=== PATIENT | male | born 1985 | race Caucasian/White ===

== ENCOUNTER 2022-12-09 19:21 | Emergency (ER) | payer MEDICAID, SELFPAY ==
[2022-12-09 19:27] VITALS: BP 114/77; PULSE 79; RESP 20; TEMP 37.3; O2SAT 97; BMI 25.8
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
[2022-12-09 19:32] VITALS: BP 150/90; PULSE 60; O2SAT 98
== END 2022-12-09 23:04 | disposition left against medical advice (07) ==
PROVIDERS: Emergency Provider Internal Medicine
DX: M54.50 Low back pain, unspecified (principal)
CPT/HCPCS: 99282

== ENCOUNTER 2023-11-20 03:28 | Inpatient (IN) | payer OTHER, SELFPAY ==
--- NOTE | ~2023-11-20 | CT_ITS ---
EXAMINATION: CT of the left forearm with intravenous contrast INDICATION: Reason for Exam Abscess IVDA COMPARISON: None TECHNIQUE: Multidetector volumetric imaging was obtained through the left forearm following intravenous administration of 85 mL Omnipaque 350. Multiplanar reformatted images in coronal and sagittal orientations were submitted. This CT examination was performed using dose optimization techniques as appropriate, variously including the following: *Automated exposure control *Adjustment of mA and/or kV according to patient size (this includes techniques or standardized protocols for targeted exams where dose is matched to indication/reason for exam; i.e. extremities or head) *Use of iterative reconstruction technique DLP: 168 mGy-cm FINDINGS: There is significant subcutaneous fat stranding and soft tissue swelling in the volar soft tissues at the left wrist and forearm with propagation proximally along the superficial fascial plane overlying the anterior musculature. At the level of the proximal carpal row, there is a thin, peripherally enhancing, superficial collection of complex fluid measuring approximately 2 x 1.5 x 0.4 cm, consistent with a thin subcutaneous abscess. This is contiguous with a very small superficial wound in this region. The surrounding skin is thickened and hyperenhancing, consistent with cellulitis. No significant subcutaneous gas. No separate fluid collections are identified. Underlying tendons and muscles are normal in appearance without appreciable tenosynovitis. No significant findings of fasciitis in the deep intermuscular fascial planes. No acute osseous abnormalities. Old healed distal radial fracture is noted with a small chronic nonunited component along the dorsal margin of the distal radial articular surface. Wrist and elbow joints are otherwise unremarkable. CT/CT forearm LT w IV con IMPRESSION: Superficial subcutaneous abscess in the volar soft tissues at the level of the proximal carpal row measuring approximately 2 x 1.5 x 0.4 cm with surrounding cellulitis.
[2023-11-20 03:44] VITALS: BP 137/89; PULSE 101; RESP 18; TEMP 37.9; O2SAT 97; BMI 31.2
[2023-11-20 04:11] VITALS: BP 140/72; PULSE 93; RESP 16; TEMP 37.9
[2023-11-20 04:21] LABS: Basophils Absolute Auto 0.1 X10*3/uL (0.0-0.2); Basophils Percent Auto 0.5 % (0-2); Eosinophils Absolute Auto 0.1 X10*3/uL (0.0-0.4); Eosinophils Percent Auto 1.1 % (0-4); Hematocrit 38.9 % (42.0-52.0); Hemoglobin 13.1 g/dl (14.0-18.0); Imm Gran Abs Auto 0.03 X10*3/uL (0.00-0.03); Imm Gran Pct Auto 0.3 % (0.0-0.4); Lymphocytes Absolute Auto 2.7 X10*3/uL (1.2-4.9); MANUAL DIFF FLAG SCAN; Mean Corpuscular HGB Conc 33.7 g/dl (31.0-36.0); Mean Corpuscular Hemoglobin 29.9 pg (27.0-33.0); Mean Corpuscular Volume 88.8 fL (80.0-98.0); Mean Platelet Volume 9.8 fL (9.4-12.4); Monocytes Absolute Auto 1.6 X10*3/uL (0.1-1.2); Monocytes Percent Auto 14.4 % (2-11); Neutrophils Absolute Auto 6.6 x10*3/uL (2.0-8.3); Neutrophils Percent Auto 59.7 % (45-73); Platelet Count 208 X10*3/uL (160-400); Red Blood Count 4.38 X10*6/uL (4.60-5.80); Red Cell Distribution Width 12.8 % (11.0-16.0); SCAN SMEAR FLAG 1; White Blood Count 11.1 X10*3/uL (4.8-10.8)
[2023-11-20 04:37] LABS: Alanine Aminotransferase 87 U/L (0-40); Albumin Level 3.8 g/dL (3.5-5.0); Alkaline Phosphatase 75 U/L (39-117); Anion Gap 13 (12-20); Aspartate Amino Transferase 91 U/L (5-37); Bilirubin Total 0.4 mg/dL (0.0-1.0); Blood Urea Nitrogen 8 mg/dL (9-16); Calcium 9.2 mg/dL (8.4-10.2); Carbon Dioxide 23 mmol/L (22-29); Chloride 105 mmol/L (96-108); Creatinine Clr Calc Pharmacy 127.9; Estimated Glomerular Filt Rate > 60; Glucose Random 182 mg/dL (60-115); Potassium 3.3 mmol/L (3.3-5.1); Sodium 138 mmol/L (135-145); Total Protein 6.9 g/dL (6.5-8.0)
[2023-11-20 04:38] LABS: SLIDE REVIEW VERIFIED
[2023-11-20 04:40] LABS: Lactic Acid 2.7 mmol/L (0.5-2.0)
--- NOTE | 2023-11-20 04:44 | ED_ITS ---
HPI - General Adult General Chief complaint: General Medical Stated complaint: arm infection? Time Seen by Provider: 11/20/23 04:40 Source: patient Mode of arrival: ambulatory Limitations: no limitations History of Present Illness HPI narrative: Patient IVDA user used IV cocaine 2 days ago in both wrists noticed increased swelling and redness within 24 hours of injecting more on the left wrist volar aspect spreading to the forearm no fever no chills pain increases on active or passive movements of wrist neurovascular intact no fever or chills no hypersensitivity to touch Related Data Home Medications Medication Instructions Recorded Confirmed buprenorphine 8 mg-naloxone 2 mg tab sublingual 11/20/23 sublingual tablet buprenorphine 8 mg-naloxone 2 mg tab sublingual DAILY 11/20/23 sublingual tablet Allergies Allergy/AdvReac Type Severity Reaction Status Date / Time Penicillins Allergy Unknown Verified 11/20/23 03:44 tramadol AdvReac Depression Verified 11/20/23 03:44 Review of Systems 2 Review of Systems: Yes all other systems are reviewed and are negative PMFSH Past Medical History Onset Date is defined in the Problem List Problems that require an onset date and time if occurred within 24 hrs of arrival to the ED Aortic Dissection and Rupture; Neurologic impairment; Cardiopulmonary Arrest; Endotracheal Intubation; Insertion or Replacement of Mechanical Circulatory Assist Device Medical History (Updated 11/20/23 @ 06:25 by Eric Ray MD) Substance abuse Social History Social History Smoked in Last 30 Days: Yes Use of substances other than those prescribed or required for medical reasons: Yes Substance Use Type: Crack/Cocaine and Marijuana Substance Use Frequency Other:: recent relapse 2 days ago. Last Used Substance: Days (ago) Any prior treatment program specific to substance use: No Advance Directives: No Advance Directives Information Provided: No Physical Exam ED Vital Signs: Vital Signs - 24 hr 11/20/23 03:44 11/20/23 04:11 11/20/23 05:42 Temperature 100.2 F 100.3 F Pulse Rate 101 H 93 89 Respiratory Rate 18 16 16 Blood Pressure 137/89 140/72 H 134/75 Pulse Oximetry 97 97 Oxygen Delivery Method Room Air Room Air BMI result Body Mass Index 31.2 Appearance: Alert. Oriented X3. No acute distress. ENT: Pharynx normal. Oral Mucosa moist Neck: Normal inspection. Neck supple. CVS: Normal heart rate and rhythm. Pulses normal. Respiratory: No respiratory distress. Equal air entry bilateral, Abdomen: Soft and nontender. Bowel sounds are present, no mass palpable, no CVA tenderness Skin: Skin warm and dry. Normal skin color. Normal skin turgor. Extremities: Left wrist with cellulitis of the volar aspect of the wrist spreading to the mid forearm, right wrist small 3 x 3 cm cellulitis at the wrist area distal pulses palpable capillary filling less than 3 sec Neuro: Oriented X 3. No motor deficit. No sensory deficit.No cerebellar signs , cranial nerves II-XII intact Medications Administered Generic Name Dose Route Start Last Admin Trade Name Freq PRN Reason Stop Dose Admin Vancomycin HCl 2,000 mg in 520 mls @ 250 mls/hr 11/20/23 05:00 11/20/23 05:02 Vancomycin/Ns IV 11/20/23 07:04 250 mls/hr ONCE ONE Administration Discontinued Medications Generic Name Dose Route Start Last Admin Trade Name Freq PRN Reason Stop Dose Admin Sodium Chloride 1,000 mls @ 999 mls/hr 11/20/23 04:48 11/20/23 06:33 Ns IV 11/20/23 05:48 Infused .Q1H1M ONE Infusion Iohexol 85 ml 11/20/23 05:30 11/20/23 05:31 Iohexol 350 Mg/Ml 100 Ml Infus..Btl IV 11/20/23 05:31 85 ml ONCE ONE Administration Ketorolac Tromethamine 30 mg 11/20/23 05:02 11/20/23 05:30 Ketorolac Tromethamine 30 Mg/Ml Vial IVPUSH 11/20/23 05:03 30 mg ONCE ONE Administration Lidocaine HCl 5 ml 11/20/23 04:47 11/20/23 05:14 Lidocaine Hcl 1 % Mpf 5 Ml Vial INFILTRATI 11/20/23 04:48 5 ml ONCE ONE Administration Procedures Abscess I/D Site: upper extremity (Left wrist) Side (if applicable): left Local Anesthetic: lidocaine 1% Amount of anesthesia used (mL): 1 Technique: incised with blade Amount of fluid expressed (mL): 1 Sent for culture/gram staining?: Yes Irrigation: No Packing used?: none Medical Decision Making Medical Decision Making MDM Narrative: Patient with cellulitis with abscess the left wrist after using IVDA I and D was done clinically patient does not have compartment syndrome or necrotizing fasciitis at this time started on IV vancomycin patient meeting criteria for SIRS will admit for IV antibiotic. CT scan of the forearm ordered to rule out deeper space infection which showed abscess and cellulitis of the left wrist Differential Diagnosis Differential Diagnoses: The differential diagnosis associated with the presentation includes Abscess/cellulitis/necrotizing fasciitis/compartment syndrome Admission/Observation Consideration of admission/observation: Escalation of care including admission/observation considered Consult Healthcare Provider Management of the patient was discussed with: Hospitalist Lab Data [facility] Lab Attestation statement: I reviewed the patient's lab results. 11/20/23 04:14 11/20/23 04:14 Labs: Lab Results 11/20/23 Range/Units 04:14 WBC 11.1 H (4.8-10.8) X10*3/uL RBC 4.38 L (4.60-5.80) X10*6/uL Hgb 13.1 L (14.0-18.0) g/dl Hct 38.9 L (42.0-52.0) % MCV 88.8 (80.0-98.0) fL MCH 29.9 (27.0-33.0) pg MCHC 33.7 (31.0-36.0) g/dl RDW 12.8 (11.0-16.0) % Plt Count 208 (160-400) X10*3/uL MPV 9.8 (9.4-12.4) fL Immature Gran % (Auto) 0.3 (0.0-0.4) % Neut % (Auto) 59.7 (45-73) % Lymph % (Auto) 24.0 (20-40) % [place] % (Auto) 14.4 H (2-11) % Eos % (Auto) 1.1 (0-4) % Baso % (Auto) 0.5 (0-2) % Lymph # (Auto) 2.7 (1.2-4.9) X10*3/uL [place] # (Auto) 1.6 H (0.1-1.2) X10*3/uL Eos # (Auto) 0.1 (0.0-0.4) X10*3/uL Baso # (Auto) 0.1 (0.0-0.2) X10*3/uL Abs Immat Gran (auto) 0.03 (0.00-0.03) X10*3/uL Absolute Neuts (auto) 6.6 (2.0-8.3) x10*3/uL Absolute Nucleated RBC 0.000 (0.0-0.012) X10*3/uL Nucleated RBC % (auto) 0.0 (0.0-0.2) /100WBC Smear Tech's Comments VERIFIED Sodium 138 (135-145) mmol/L Potassium 3.3 (3.3-5.1) mmol/L Chloride 105 (96-108) mmol/L Carbon Dioxide 23 (22-29) mmol/L Anion Gap 13 (12-20) BUN 8 L (9-16) mg/dL Creatinine 0.82 (0.5-1.4) mg/dL Estim Creat Clear Calc 127.9 Estimated GFR > 60 Random Glucose 182 H (60-115) mg/dL Lactic Acid 2.7 H* (0.5-2.0) mmol/L Calcium 9.2 (8.4-10.2) mg/dL Total Bilirubin 0.4 (0.0-1.0) mg/dL AST 91 H (5-37) U/L ALT 87 H (0-40) U/L Alkaline Phosphatase 75 (39-117) U/L Total Protein 6.9 (6.5-8.0) g/dL Albumin 3.8 (3.5-5.0) g/dL Independent Interpretation I performed an independent interpretation of an: CT Scan Radiology Impression Discussion of test interpretation with radiology: I have reviewed the radiologist's reading. Radiologist Impression: CT/CT forearm LT w IV con IMPRESSION: Superficial subcutaneous abscess in the volar soft tissues at the level of the proximal carpal row measuring approximately 2 x 1.5 x 0.4 cm with surrounding cellulitis. Discharge Plan Discharge Clinical Impression: Cellulitis of forearm, left, Abscess Patient Disposition: Admitted As Inpatient
[2023-11-20] MEDS: Lidocaine HCl 1 % MPF 5 ML VIAL INFILTRATI (05:14)
--- NOTE | 2023-11-20 05:18 | PC.NURSE ---
SEPSIS criteria intiated @ 04:45
[2023-11-20] MEDS: Ketorolac Tromethamine 30 MG/ML VIAL IVPUSH (05:30)
[2023-11-20] MEDS: 0.9 % Sodium Chloride 1,000 ML 999 ML IV ×2 (05:30→07:43)
[2023-11-20] MEDS: iohexoL 350 MG/ML 100 ML INFUS..BTL 85 ML IV (05:31)
--- NOTE | 2023-11-20 05:32 | PC.NURSE ---
IVF running as well as Vancomycin. Medicated with toradol for pain. Resp even and unlabored. Partner @ bedside. Call luis within reach.
[2023-11-20 05:42] VITALS: BP 134/75; PULSE 89; RESP 16; O2SAT 97
--- NOTE | 2023-11-20 06:12 | P.HPHOSP_ITS ---
History of Present Illness Date of Service: 11/20/23 Attending physician on admission: Angelito Blake Chief Complaint: Wrists swelling Vitaliy Richardson Is a 38 years old man with past medical history significant for IV drug use presents to the emergency department complaining of worsening swelling to both wrists. He mentioned that he injected cocaine to wrist 2 days ago. He did not report fever. He mentioned that he had a headache yesterday but this resolved. He denies any acute cardiopulmonary, gastrointestinal or genitourinary symptoms. He denies edema to lower extremities. In the ED, he was found to have stable vital signs. Blood workup was remarkable for mild leukocytosis of 11.1. There is lactic acidosis, 2.7. Transaminases are elevated. Total bilirubin are phos are normal. Renal function is normal. ED tx: Vancomycin 2 g IV x1 and Toradol 30 mg IV. I&D abscess left forearm (distal third). Review of Systems 2 Review of Systems: All 12 systems were reviewed and normal except as noted in HPI. [facility] Medical History (Updated 11/20/23 @ 06:25 by Eric Ray MD) Substance abuse Social History Patient Tobacco Use Status: Former Tobacco user Smoked in Last 30 Days: Yes Use of substances other than those prescribed or required for medical reasons: Yes Substance Use Type: Crack/Cocaine and Marijuana Substance Use Frequency Other:: recent relapse 2 days ago. Last Used Substance: Days (ago) Any prior treatment program specific to substance use: No Advance Directives: No Advance Directives Information Provided: No Nutrition Risks: No Nutritional Risk Meds Allergies Allergy/AdvReac Type Severity Reaction Status Date / Time Penicillins Allergy Unknown Verified 11/20/23 03:44 tramadol AdvReac Depression Verified 11/20/23 03:44 Active Medications: Current Medications Acetaminophen (Acetaminophen 325 Mg Tablet) 975 mg PO Q6H PRN PRN Reason: Fever Vancomycin HCl (Vancomycin/Ns) 2,000 mg in 520 mls @ 250 mls/hr IV ONCE ONE Stop: 11/20/23 07:04 Last Admin: 11/20/23 05:02 Dose: 250 mls/hr Pharmacy Consult (Consult Rx Vancomycin Dosing) 1 each MISCELLANE DAILY PRN PRN Reason: Consult order Sodium Chloride (0.9 % Sodium Chloride Flush 3 Ml Syringe) 3 ml IVFLUSH QSHIFT [facility] Home Medications Medication Instructions Recorded Confirmed Last Taken Type buprenorphine 8 mg-naloxone 2 mg tab sublingual 11/20/23 1 Day Ago History sublingual tablet ~11/19/23 buprenorphine 8 mg-naloxone 2 mg tab sublingual DAILY 11/20/23 1 Day Ago History sublingual tablet ~11/19/23 Physical Exam 2 Vital Signs and Narrative: Vital Signs: Last Vital Signs Temp 100.3 F 11/20/23 04:11 Pulse 89 11/20/23 05:42 Resp 16 11/20/23 05:42 BP 134/75 11/20/23 05:42 Pulse Ox 97 11/20/23 05:42 O2 Del Method Room Air 11/20/23 05:42 BMI result Body Mass Index 31.2 Constitutional - Awake and Alert, No apparent distress HEENT - Atraumatic, normocephalic. No scleral icterus. Cardiovascular - RRR, no murmur. Respiratory - Normal lung expansion, Normal respiratory effort, No respiratory distress, CTA bilaterally Gastrointestinal - Non tenderness. Extremities - [place] and erythema of both distal third of forearm involving the wrists (volar aspect). Please see ED notes (pictures) Musculoskeletal - Normal inspection, normal ROM Skin - Warm/Dry Neurological - Alert & oriented x3, CN II-XII in tact, 5/5 strength BUE and BLE Psychological - Appropriate affect Results Labs 11/20/23 04:14 11/20/23 04:14 Labs: Laboratory Results - last 24 hr 11/20/23 04:14 MCV 88.8 MCH 29.9 MCHC 33.7 RDW 12.8 Plt Count 208 MPV 9.8 Immature Gran % (Auto) 0.3 Neut % (Auto) 59.7 Lymph % (Auto) 24.0 [place] % (Auto) 14.4 H Eos % (Auto) 1.1 Baso % (Auto) 0.5 Lymph # (Auto) 2.7 [place] # (Auto) 1.6 H Eos # (Auto) 0.1 Baso # (Auto) 0.1 Abs Immat Gran (auto) 0.03 Absolute Neuts (auto) 6.6 Absolute Nucleated RBC 0.000 Nucleated RBC % (auto) 0.0 Smear Tech's Comments VERIFIED Anion Gap 13 Estim Creat Clear Calc 127.9 Estimated GFR > 60 Random Glucose 182 H Lactic Acid 2.7 H* Calcium 9.2 Total Bilirubin 0.4 AST 91 H ALT 87 H Alkaline Phosphatase 75 Total Protein 6.9 Albumin 3.8 Imaging Radiologist's Impressions: Impressions Forearm CT 11/20/23 05:32 IMPRESSION: Superficial subcutaneous abscess in the volar soft tissues at the level of the proximal carpal row measuring approximately 2 x 1.5 x 0.4 cm with surrounding cellulitis. Assessment and Plan (1) Abscess: Status: Acute (2) Cellulitis of forearm, left: Status: Acute Plan Vitaliy Richardson is a 38 years old man admitted with: * Bilateral wrists/distal forearms cellulitis + left wrist/forearm abscess. s/p I&D by ED. admitted to hospitalist service. Patient continue empiric IV antibiotic therapy with vancomycin. Surgery consult. * Sepsis secondary to above. Continue vancomycin. IV fluids (30ml/hr). Blood cultures were obtained-with further results. Continue to monitor lactic acid. * IV drug use. Continue Suboxone. * Neuropathy. Continue gabapentin. * Elevated transaminase. Will continue to monitor for now. If these continue to increase will consider further evaluation. VTE prophylaxis: SCDs. Code status: Full. Patient will require hospitalization for at least 2 midnights for bilateral wrist/distal forearms cellulitis and abscess treatment. Patient would require IV antibiotics, IV fluids and surgery evaluation. Quality Stroke Does the patient have a stroke diagnosis?: No VTE Prior VTE?: No VTE Risk Level:: Medical - low VTE Device Contraindication: N/A - Device Ordered VTE Drug Contraindication: Treatment Not Indicated
--- NOTE | 2023-11-20 06:16 | PC.NURSE ---
Report given to DANNY Draper in overflow. Advised of sepsis protocol, fluids have approx 30 min left and 2 blood pressures left to document.
[2023-11-20 06:19] LABS: Reflex Lactate? Lactic Acid Added
[2023-11-20 06:35] VITALS: BP 132/61; PULSE 85; RESP 18; TEMP 37.2; O2SAT 97
[2023-11-20 07:11] VITALS: BP 114/48; PULSE 86; RESP 16; TEMP 37.1; O2SAT 95
--- NOTE | 2023-11-20 07:27 | PC.NURSE ---
PHLEMBOTOMY CALLED. THIS RN SPOKE WITH SUE . LAB TO BE DRAWN.
[2023-11-20] MEDS: 0.9 % Sodium Chloride 1,000 ML 125 ML IVCONT (07:43)
[2023-11-20] MEDS: 0.9 % Sodium Chloride Flush 3 ML SYRINGE IVFLUSH (07:43)
--- NOTE | 2023-11-20 07:53 | PHA.MEDREC ---
Pharmacy Consult ? Medication Reconciliation Pharmacy has completed the medication reconciliation. Pt states they take Suboxone 8-2 tabs and takes all 3 tabs at once when they wake up every day.
--- NOTE | 2023-11-20 08:11 | PHA.PROG ---
Admission Date/Time: November 20, 2023 05:46 Indication: ssti Weight in k.7 kg Adjusted body weight in K kg [place] body weight in K kg Obesity Dosing Indication % IBW: Serum Creatinine - Last 168 Hours 11/20/23 04:14 Creatinine 0.82 Estimated CrCl and GFR - Last 168 Hours 11/20/23 04:14 Estim Creat Clear Calc 127.9 Estimated GFR > 60 Vancomycin Loading Dose: 2000 mg Current Vancomycin Dosing Regimen: 1250 mg q12h Vancomycin Monitoring using AUC goal of 400 - 600 range with trough as surrogate marker: predicted auc 462 Date and Time for next Vancomycin Level to be drawn: 11/21/23 @1500 Pharmacist Comments on Vancomycin Plan: Vancomycin dosing will take advantage of [employer] as a clinical decision support tool that uses Bayesian modeling to calculate individual patient's pharmacokinetic parameters and forecast the patient's drug concentration time course with the target goal AUC 24 range of 400 - 600 mg/L/hr.
--- NOTE | 2023-11-20 08:30 | PC.NURSE ---
DR. MORENO AT BEDSIDE ASSESS/EVAL PT'S WOUND TO L WRIST. DRESSING CHANGE DONE BY DR. MORENO.
--- NOTE | 2023-11-20 08:36 | P.CONGS_ITS ---
History of Present Illness Consult details Consult date: 11/20/23 Narrative: 38-year-old male admitted for a left wrist abscess. He has a known IV drug abuse history. Apparently he had been using his wrist to inject cocaine. He developed redness and swelling on both sides which has been going on for over a week. This was worse on the left side. He was therefore came to the emergency room last night An I and D was done by the ER staff. He was admitted for IV antibiotics as he had met sepsis criteria. Currently, he says that he has not want to talk about the mechanism of onset of his abscess. Review of Systems 2 Constitutional: Constitutional: Denies chills and Denies fever(s) Cardiovascular: Cardiovascular: Denies chest pain, Denies dyspnea and Denies dyspnea on exertion Respiratory: Respiratory: Denies cough, Denies dyspnea and Denies dyspnea on exertion Gastrointestinal: Gastrointestinal: Denies hematochezia and Denies change in bowel habits Genitourinary: Genitourinary: Denies hematuria and Denies difficulty urinating Musculoskeletal: Musculoskeletal: Denies back pain and Denies limited range of motion Neurologic: Denies focal weakness and Denies convulsions Psychiatric: Psychiatric: Denies depression and Denies mood swings PMFSH Past Medical History Medical History Substance abuse Social History Social History Patient Tobacco Use Status: Former Tobacco user Smoked in Last 30 Days: Yes Use of substances other than those prescribed or required for medical reasons: Yes Substance Use Type: Crack/Cocaine and Marijuana Substance Use Frequency Other:: recent relapse 2 days ago. Last Used Substance: Days (ago) Any prior treatment program specific to substance use: No Advance Directives: No Advance Directives Information Provided: No Nutrition Risks: No Nutritional Risk Meds Allergies Allergy/AdvReac Type Severity Reaction Status Date / Time Penicillins Allergy Unknown Verified 11/20/23 03:44 tramadol AdvReac Depression Verified 11/20/23 03:44 Active Medications: Current Medications Acetaminophen (Acetaminophen 325 Mg Tablet) 975 mg PO Q6H PRN PRN Reason: Fever Buprenorphine/Naloxone (Buprenorphine/Naloxone 8/2 Mg Tab.Subl) 3 tab SUBLINGUAL DAILY [place] Gabapentin (Gabapentin 600 Mg Tablet) 600 mg PO TID [place] Sodium Chloride (Ns) 1,000 mls @ 125 mls/hr IVCONT .Q8H [facility] Last Admin: 11/20/23 07:43 Dose: 125 mls/hr Vancomycin HCl 1,250 mg/ (Sodium Chloride) 250 mls @ 166.667 mls/hr IV Q12H [facility] Ibuprofen (Ibuprofen 200 Mg Tablet) 200 mg PO Q6H PRN PRN Reason: Pain, Mild (Pain Scale 1-3) Mirtazapine (Mirtazapine 15 Mg Tablet) 15 mg PO BEDTIME [facility] Pharmacy Consult (Consult Rx Vancomycin Dosing) 1 each MISCELLANE DAILY PRN PRN Reason: Consult order Quetiapine Fumarate (Quetiapine Fumarate 25 Mg Tablet) 12.5 mg PO BEDTIME [facility] Sodium Chloride (0.9 % Sodium Chloride Flush 3 Ml Syringe) 3 ml IVFLUSH QSHIFT [facility] Last Admin: 11/20/23 07:43 Dose: 3 ml Home Medications Medication Instructions Recorded Confirmed Last Taken Type buprenorphine 8 mg-naloxone 2 mg 3 tab sublingual DAILY 11/20/23 11/20/23 11/19/23 History sublingual tablet gabapentin 400 mg capsule 1,200 mg PO TID 11/20/23 11/20/23 11/19/23 History mirtazapine 30 mg tablet 15 mg PO BEDTIME 11/20/23 11/20/23 11/19/23 History quetiapine 25 mg tablet 12.5 mg PO BEDTIME 11/20/23 11/20/23 11/19/23 History Physical Exam 2 Vital Signs: Vital Signs: Last Vital Signs Temp 98.8 F 11/20/23 07:11 Pulse 86 11/20/23 07:11 Resp 16 11/20/23 07:11 BP 114/48 L 11/20/23 07:11 Pulse Ox 95 11/20/23 07:11 O2 Del Method Room Air 11/20/23 07:11 BMI result Body Mass Index 31.2 Const: General: comfortable and no acute distress Resp: Effort & Inspection: normal respiratory effort Cardio: Rate: regular rate Extrem: Other: I&D site seen on the left wrist, patent, on the volar aspect, some residual pus expressed from the wound, no residual fluctuance Cellulitic change on an area of the right wrist, volar aspect, no fluctuance Results Labs 11/20/23 04:14 11/20/23 04:14 Labs: Abnormal lab results 11/20/23 Range/Units 04:14 WBC 11.1 H (4.8-10.8) X10*3/uL RBC 4.38 L (4.60-5.80) X10*6/uL Hgb 13.1 L (14.0-18.0) g/dl Hct 38.9 L (42.0-52.0) % [place] % (Auto) 14.4 H (2-11) % [place] # (Auto) 1.6 H (0.1-1.2) X10*3/uL BUN 8 L (9-16) mg/dL Random Glucose 182 H (60-115) mg/dL Lactic Acid 2.7 H* (0.5-2.0) mmol/L AST 91 H (5-37) U/L ALT 87 H (0-40) U/L Short CBC 11/20/23 Range/Units 04:14 WBC 11.1 H (4.8-10.8) X10*3/uL Hgb 13.1 L (14.0-18.0) g/dl Hct 38.9 L (42.0-52.0) % Plt Count 208 (160-400) X10*3/uL BMP 11/20/23 04:14 Sodium 138 Potassium 3.3 Chloride 105 Carbon Dioxide 23 BUN 8 L Creatinine 0.82 Calcium 9.2 Liver Function 11/20/23 Range/Units 04:14 Total Bilirubin 0.4 (0.0-1.0) mg/dL AST 91 H (5-37) U/L ALT 87 H (0-40) U/L Alkaline Phosphatase 75 (39-117) U/L Albumin 3.8 (3.5-5.0) g/dL All other labs normal. Assessment and Plan (1) Abscess: Status: Acute He had an abscess on the left wrist, also seen on CT scan. This likely from needle use with this IV drug abuse. I have changes dressings. I have encouraged him to massage the area to promote drainage of any residual abscess. He is on IV antibiotics. We will follow along while he is in the hospital. There does not seem to be any drainable collection on the right wrist. Procedures Date of Service Date of Service: 11/20/23
[2023-11-20] MEDS: Acetaminophen 325 MG TABLET 975 MG PO (08:44)
[2023-11-20] MEDS: Ibuprofen 200 MG TABLET PO (08:45)
--- NOTE | 2023-11-20 08:56 | PC.NURSE ---
HOSP FLORA LUEVANO) AT BEDSIDE. PT AWARE OF PLAN OF CARE.
--- NOTE | 2023-11-20 09:11 | PC.NURSE ---
PT IS A/O X 4 NO SOB/JOSUE NOTED SPEAKS IN FULL SENTENCES. PT C/O 8/10 L WRIST PAIN. PT ATE 100% OF BREAKFAST THEN STATED THAT HE WAS STILL HUNGRY. PT REQUESTED/GIVEN AN EXTRA TRAY OF EGG/PANIAGUA/TOAST. PT IS IN BED WITH HOB UP. IVF INFUSING. PT AWARE OF PLAN OF CARE.
[2023-11-20 09:41] LABS: ~Lactic Acid-LAB USE ONLY 2.3 mmol/L (0.5-2.0)
[2023-11-20] MEDS: Buprenorphine/Naloxone 8/2 mg TAB.SUBL 3 TAB SUBLINGUAL (10:08)
[2023-11-20 11:22] LABS: Reflex Lactate? 2 Y
[2023-11-20] MEDS: Morphine Sulfate 2 MG/ML CARTRIDGE IVPUSH (11:33)
--- NOTE | 2023-11-20 11:50 | PC.NURSE ---
[facility] NOTIF[facility] PT C/O R LOWER FOREARM SWELLING AND REDNESS TO INNER LOWER FOREARM/WRIST AREA. THIS AREA IS TENDER TO TOUCH AND PT ENCORAGED TO ELEVATE EXTREMITY. PT WAS ASSESS/EVAL BY FLORA CANALES OF THE NEW DEVELPMENT OF R LOWER FOREARM/WRIST AREA SWELLING/REDNESS. +CMS NOTED TO EXT. PT TO HAVE CT SCAN OF R FOREARM. WILL CONTINUE TO MONITOR.
[2023-11-20 12:46] LABS: ~Lactic Acid-LAB USE ONLY 0.9 mmol/L (0.5-2.0)
[2023-11-20] MEDS: oxyCODONE HCl Immed Release 5 MG TABLET PO (13:01)
--- NOTE | 2023-11-20 14:00 | PC.NURSE ---
PT WENT TO CT SCAN NEAR THE OLD ER VIA HOSP BED.
--- NOTE | 2023-11-20 14:38 | PC.NURSE ---
Pt came to the unit, aggressive to computer network support specialist, wanted to go outside to smoke. educated that he can not leave the unit. offered gum or a patch, pt refused and wanted to leave AMA. AMA paper signed and witnessed by two RNs. Provider notified.
--- NOTE | 2023-11-20 14:46 | P.DS_ITS ---
DS: Providers Provider Date of Service: 11/20/23 Date of admission: 11/20/23 05:46 Date of discharge: 11/20/23 Primary care physician: Adi Soto NP Consults: 11/20/23 07:04 Consult to General Surgery Routine Consulting Provider: [facility] [place] [facility] Reason for consultation: wrist abscess Has provider been notified: No 11/20/23 08:09 Addiction Medicine Routine Consulting Provider: Addiction Covering Reason for consultation: ivdu Has provider been notified: No Attending physician on discharge: Ma[facility] Discharging clinician: Mallory Deleon DS: Diagnosis Discharge Diagnosis (1) Abscess: Status: Acute DS: Summary Hospital Course Hospital Course: see H&P from early today Patient was started on IV antibiotics. He was seen in consultation by General surgery and did not need any further I and D today. He reported increasing Right arm swelling and therefore a right wrist CT scan was ordered. Unfortunately patient elected to leave against medical advice. He left the floor prior to evaluation by this provider. He stated to the nurse that he would be going to the [facility] for evaluation. CT scan of right wrist and blood cultures are pending at this time. Time Attestation Discharge coordination time: Greater than 30 minutes Quality: Safe Use of Opioids Does Pt have an Active Cancer Diagnosis on the Problem List?: No Quality: Stroke Does the patient have a stroke diagnosis?: No Physical Exam Vital Signs: Vital Signs: Last Vital Signs Temp 98.8 F 11/20/23 07:11 Pulse 86 11/20/23 07:11 Resp 16 11/20/23 07:11 BP 114/48 L 11/20/23 07:11 Pulse Ox 95 11/20/23 07:11 O2 Del Method Room Air 11/20/23 07:11 BMI result Body Mass Index 31.2 DS: Data Data Completed and Pending Labs on day of discharge: Laboratory Results - last 24 hr 11/20/23 11/20/23 11/20/23 04:14 09:19 12:26 WBC 11.1 H RBC 4.38 L Hgb 13.1 L Hct 38.9 L MCV 88.8 MCH 29.9 MCHC 33.7 RDW 12.8 Plt Count 208 MPV 9.8 Immature Gran % (Auto) 0.3 Neut % (Auto) 59.7 Lymph % (Auto) 24.0 [place] % (Auto) 14.4 H Eos % (Auto) 1.1 Baso % (Auto) 0.5 Lymph # (Auto) 2.7 [place] # (Auto) 1.6 H Eos # (Auto) 0.1 Baso # (Auto) 0.1 Abs Immat Gran (auto) 0.03 Absolute Neuts (auto) 6.6 Absolute Nucleated RBC 0.000 Nucleated RBC % (auto) 0.0 Smear Tech's Comments VERIFIED Sodium 138 Potassium 3.3 Chloride 105 Carbon Dioxide 23 Anion Gap 13 BUN 8 L Creatinine 0.82 Estim Creat Clear Calc 127.9 Estimated GFR > 60 Random Glucose 182 H Lactic Acid 2.7 H* Lactic Acid F/U @ 2Hr 2.3 H* Lactic Acid F/U @ 4Hr 0.9 Calcium 9.2 Total Bilirubin 0.4 AST 91 H ALT 87 H Alkaline Phosphatase 75 Total Protein 6.9 Albumin 3.8 Discharge Plan Discharge Patient Disposition: Left Against Medical Advice Discharge Diagnosis: cellulitis and abscess of left arm Referrals: Adi Soto, [facility] [Primary Care Provider] - 1 Week Discharge Medications: Continued buprenorphine-naloxone 8-2 mg tablet, sublingual 3 tab sublingual DAILY quetiapine 25 mg tablet 12.5 mg PO BEDTIME gabapentin 400 mg capsule 1,200 mg PO TID mirtazapine 30 mg tablet 15 mg PO BEDTIME Discharge Orders: Discharge Order (Routine); Ordered 11/20/23 Ordered By: Mallory Deleon Care Plan Goals: left AMA Health Concerns: left arm cellulitis with abscess Plan of Treatment: patient left the hospital against medical advice unfortunately he did not wait to discuss with medical provider Assessment: left AMA Discharge Date/Time: 11/20/23 14:45
== END 2023-11-20 14:45 | disposition left against medical advice (07) | DRG 872 ==
LOC: HO.ED 04:40 → HO.EDOVER 05:55 → HO.S3 13:35
PROVIDERS: Admitting Provider Internal Medicine; Emergency Provider Internal Medicine; PCP Nurse Practitioner Family; Visit Provider Physician Assistant Medical
DX: A41.9 Sepsis, unspecified organism (principal); L02.414 Cutaneous abscess of left upper limb; F11.20 Opioid dependence, uncomplicated; E87.20 Acidosis, unspecified; L03.114 Cellulitis of left upper limb; L03.113 Cellulitis of right upper limb; Z79.899 Other long term (current) drug therapy
CPT/HCPCS: 36415; 73201; 80053; 83605; 85025; 87040; 87070; 87147; 87205; 99285; J1885; J2270; J3370; Q9967

== ENCOUNTER → 2023-11-20 05:46 | Outpatient (BNV) | payer OTHER, SELFPAY | PROVIDERS: Admitting Provider Internal Medicine; Emergency Provider Internal Medicine; PCP Nurse Practitioner Family; Visit Provider Internal Medicine | DX: L02.91 Cutaneous abscess, unspecified (principal); Z53.29 Procedure and treatment not carried out because of patient's decision for other reasons | CPT/HCPCS: 99223; 99236 ==

== ENCOUNTER → 2023-11-20 05:46 | Outpatient (BNV) | payer OTHER, SELFPAY | PROVIDERS: Admitting Provider Internal Medicine; Emergency Provider Internal Medicine; PCP Nurse Practitioner Family; Visit Provider Surgery | DX: L02.91 Cutaneous abscess, unspecified (principal) | CPT/HCPCS: 99222 ==